=== PATIENT | male | born 1990 | race Caucasian/White ===

== ENCOUNTER 2019-11-05 08:56 | Emergency (ER) | payer SELFPAY ==
[~2019-11-05] VITALS: Ht 177.8 cm; Wt 70.3 kg
[2019-11-05 09:29] LABS: BASOPHILS # (AUTO) 0.2 /CMM (0.0-0.2); BASOPHILS % (AUTO) 2.3 % (0.0-2.0); EOSINOPHILS % (AUTO) 1.6 % (0.0-6.0); HEMATOCRIT 41 % (39-51); HEMOGLOBIN 13.9 g/dL (13.5-17.5); LYMPHOCYTES # (AUTO) 1.6 /CMM (0.8-4.8); LYMPHOCYTES % (AUTO) 17.5 % (20.0-44.0); MEAN CORPUSCULAR HGB CONC 34 g/dl (31.0-36.0); MEAN CORPUSCULAR VOLUME 85 fL (80-96); MONOCYTES # (AUTO) 0.8 /CMM (0.1-1.30); MONOCYTES % (AUTO) 8.8 % (2.0-12.0); NEUTROPHILS # (AUTO) 6.3 /CMM (1.8-8.9); NEUTROPHILS % (AUTO) 69.8 % (43.0-81.0); PLATELET COUNT (AUTO) 191 /CMM (150-450); RED BLOOD CELL COUNT(AUTO) 4.79 MIL/uL (4.5-6.0)
--- NOTE | 2019-11-05 09:32 | NUR ---
Patient awake confused stated he is in [place] ,patient is agitated ,Dr. Almazan @ bedside
[2019-11-05 09:33] LABS: CALCIUM, SERUM 9.2 mg/dL (8.5-10.1); CARBON DIOXIDE 29 mmol/L (21-32); CHLORIDE 106 mmol/L (98-107); CREATININE 0.8 mg/dL (0.6-1.3); GLUCOSE 104 mg/dL (74-106); POTASSIUM 3.5 mmol/L (3.5-5.1); SODIUM SERUM 143 mmol/L (136-145); UREA NITROGEN, BLOOD 13 mg/dL (7-18)
--- NOTE | 2019-11-05 09:36 | NUR ---
Patient is verbally abusive to staff trying getting out of bed called security back to bed sitter @ bedside continue to monitor
[2019-11-05 09:39] LABS: ACETAMINOPHEN 0 ug/ml (10-30); ALANINE AMINOTRANSFERASE 28 U/L (12-78); ALBUMIN 4.3 g/dL (3.4-5.0); ALCOHOL, BLOOD < 3 mg/dL (0-0); ALKALINE PHOSPHATASE 50 U/L (46-116); ASPARTATE AMINOTRANSFERASE 19 U/L (15-37); BILIRUBIN,DIRECT 0.1 mg/dL (0.0-0.2); BILIRUBIN,TOTAL 0.5 mg/dL (0.2-1.0); SALICYLATE 0.7 mg/dL (2.8-20.0); TOTAL PROTEIN, SERUM 7.6 g/dL (6.4-8.2)
--- NOTE | 2019-11-05 09:42 | NUR ---
Patient awake standing trying pulling his heplock ,he refused xray ,fluids calling staff names and cursing
[2019-11-05] MEDS ORDERED: OLANZAPINE 10 MG VIAL IM ONE ×2 (09:48→10:00)
--- NOTE | 2019-11-05 10:03 | NUR ---
Patient awake verbally abusive ,cursing staff make comment and say ' Fuck You multiple times towards staff call security patient spitting cover mouth Dr. Almazan with order
--- NOTE | 2019-11-05 10:37 | NUR ---
SW NOTE: Pt is a 29 year old male BIB EMS due to overdose. Upon social work evaluation, pt was somnolent, lethargic and labile; pt was uncooperative and did not provide any information, stating, "I don't know anything." Pt is alert and oriented x2; to self and place and states he does not know why he is in the hospital. Pt received an IM (Zyprexa 10mg) due to aggressive and combative behavior, pt is currently on 4 point restraints. Pt appears disheveled and unkempt and is naked. Pt denies being homeless and denies to provide a home address. When asked where he lives pt states, "On [address] in [place]. " Pt denies suicidal/homicidal ideation and denies visual/auditory hallucinations. Pt also denies drug/alcohol use however, a capsule with an unknown white powdery substance was found in his belongings.
--- NOTE | 2019-11-05 10:59 | NUR ---
Patient awake requesting to use bathroom urinal used urine obtained and send to lab
[2019-11-05 11:12] LABS: APPEARANCE,URINE Clear (CLEAR); BILIRUBIN,URINE Negative (NEGATIVE); BLOOD, URINE Trace-intact Ery/uL (NEGATIVE); COLOR,URINE Yellow (YELLOW); KETONES,URINE Negative (NEGATIVE); LEUKOCYTE ESTERASE ,URINE Negative (NEGATIVE); NITRITE, URINE Negative (NEGATIVE); PH,URINE 5.5 (5.0-8.0); PROTEIN,URINE Negative (NEGATIVE); UGLUCOSE Negative (NEGATIVE); UROBILINOGEN,URINE 0.2 EU/dL (0.2)
[2019-11-05 11:13] LABS: BACTERIA,URINE None seen /HPF (None Seen); RBC,URINE 0-2 /HPF (0-2); SQUAMOUS EPITHELIAL CELL,UR None Seen /HPF (None Seen); WBC,URINE 0-2 /HPF (0-3)
--- NOTE | 2019-11-05 12:15 | NUR ---
Patient eyes close no further yelling @ this time fall back to sleep vitals taken and filed
--- NOTE | 2019-11-05 13:40 | NUR ---
Patient awake alert to name hes coming around he knows his address ok to have lunch per Dr. Almazan
--- NOTE | 2019-11-05 13:57 | NUR ---
Patient awake alert road test passed no dizziness ,oral fluid passed no N/V patient agrees to see PMD in 2 days patient not SI OK to DC home per Dr. Almazan
[2019-11-05 13:59] VITALS: BP 123/88
--- NOTE | 2019-11-05 14:06 | NUR ---
Patient discharged to home in stable condition. Written and verbal after care instructions given. Patient verbalizes understanding of instruction.
== END 2019-11-05 14:15 | disposition home or self-care (01) ==
LOC: ER 08:59 → EDUNIT# 08:59 → ER 14:15
DX: G93.41 Metabolic encephalopathy (principal); F19.10 Other psychoactive substance abuse, uncomplicated; R41.0 Disorientation, unspecified; R94.31 Abnormal electrocardiogram [ECG] [EKG]
CPT/HCPCS: 36415; 80048; 80076; 80305; 80307; 80329; 81001; 85025; 93005; 96372; 99284; G0480; J3490; 81000-TC; J7030